=== PATIENT | female | born 1990 | race Caucasian/White ===

== ENCOUNTER 2022-02-05 20:27 | Emergency (ER) | payer MEDICAID ==
[~2022-02-05] VITALS: Ht 170.2 cm; Wt 120.1 kg
[2022-02-05 20:44] VITALS: BP 133/70
[2022-02-05] MEDS ORDERED: TETRACAINE 0.5% OPHTH DROPS 4ML LEFTEYE ONE (23:30)
[2022-02-05] MEDS ORDERED: FLUORESCEIN SODIUM 1MG/STRIP LEFTEYE ONE (23:30)
[2022-02-05] MEDS ORDERED: CEFUROXIME AXETIL 250MG TABLET PO ONE (23:30)
[2022-02-05] MEDS ORDERED: SULFAMETHOXAZOLE/TRIMETHOPRIM 800/160MG TABLET PO ONE (23:30)
== END 2022-02-06 00:44 | disposition left against medical advice (07) ==
LOC: ER 20:27
DX: H01.9 Unspecified inflammation of eyelid (principal); Z88.0 Allergy status to penicillin
CPT/HCPCS: 99283